=== PATIENT | female | born 1960 | race Two or more races ===

== ENCOUNTER 2025-02-20 21:27 | Emergency (ER) | payer MEDICAID, OTHER ==
[~2025-02-20] VITALS: Ht 157.5 cm; Wt 86.2 kg
[2025-02-20 22:13] LABS: BASOPHILS % (AUTO) 0.3 % (0.0-2.0); HEMATOCRIT 32 % (33-45); HEMOGLOBIN 10.3 g/dL (11.5-14.8); LYMPHOCYTES # (AUTO) 0.2 K/uL (0.8-4.8); LYMPHOCYTES % (AUTO) 3.7 % (20.0-44.0); MEAN CORPUSCULAR HEMOGLOBIN 28 PG (26.0-33.0); MEAN CORPUSCULAR HGB CONC 32 g/dl (31.0-36.0); MEAN CORPUSCULAR VOLUME 85 fL (82-100); MONOCYTES # (AUTO) 0.1 K/uL (0.1-1.30); MONOCYTES % (AUTO) 1.7 % (2.0-12.0); NEUTROPHILS # (AUTO) 6.1 K/uL (1.8-8.9); NEUTROPHILS % (AUTO) 94.3 % (43.0-81.0); PLATELET COUNT (AUTO) 251 K/uL (150-450); RED BLOOD CELL COUNT(AUTO) 3.74 MIL/uL (4.0-5.2); RED CELL DISTRIBUTION WIDTH 16.1 % (11.5-15.0); WHITE BLOOD COUNT (AUTO) 6.4 K/uL (4.3-11.0)
[2025-02-20 22:14] VITALS: TEMP 98.5
[2025-02-20 22:23] LABS: CALCIUM, SERUM 8.8 mg/dL (8.5-10.1); CARBON DIOXIDE 33 mmol/L (21-32); CHLORIDE 98 mmol/L (98-107); CREATININE 0.9 mg/dL (0.6-1.3); GLUCOSE 131 mg/dL (74-106); POTASSIUM 3.9 mmol/L (3.5-5.1); SODIUM SERUM 136 mmol/L (136-145); UREA NITROGEN, BLOOD 30 mg/dL (7-18)
[2025-02-20 22:28] LABS: ALANINE AMINOTRANSFERASE 26 U/L (12-78); ALBUMIN 2.6 g/dL (3.4-5.0); ALKALINE PHOSPHATASE 71 U/L (46-116); ASPARTATE AMINOTRANSFERASE 17 U/L (15-37); BILIRUBIN,DIRECT 0.1 mg/dL (0.0-0.2); BILIRUBIN,TOTAL 0.3 mg/dL (0.2-1.0); TOTAL PROTEIN, SERUM 6.4 g/dL (6.4-8.2)
[2025-02-20] MEDS ORDERED: CLONIDINE HCL 0.1 MG TABLET ONE (22:30)
[2025-02-20] MEDS: CLONIDINE HCL 0.1 MG TABLET PO ONE (22:30)
[2025-02-20 22:34] LABS: LACTIC ACID 1.5 mmol/L (0.4-2.0)
[2025-02-20 22:37] LABS: INR 1.06 (0.91-1.10); PARTIAL THROMBOPLASTIN TIME 31.8 SEC (24.3-34.3); PROTHROMBIN TIME 11.2 SECS (9.2-11.1)
[2025-02-20 23:23] LABS: APPEARANCE,URINE CLEAR (CLEAR); BILIRUBIN,URINE NEGATIVE (NEGATIVE); BLOOD, URINE NEGATIVE Ery/uL (NEGATIVE); COLOR,URINE YELLOW (YELLOW); KETONES,URINE NEGATIVE (NEGATIVE); LEUKOCYTE ESTERASE ,URINE NEGATIVE (NEGATIVE); NITRITE, URINE NEGATIVE (NEGATIVE); PROTEIN,URINE TRACE mg/dl (NEGATIVE); UGLUCOSE NEGATIVE (NEGATIVE); UROBILINOGEN,URINE 0.2 EU/dL (0.2)
[2025-02-20] MEDS ORDERED: methylPREDNISolone SOD SUCC 125 MG/2ML VIAL ONE (23:26)
[2025-02-20 23:28] LABS: ABG OXYGEN SATURATION 96.5 % (94.0-98.0); ABG PCO2 39.5 mmHg (32.0-45.0); ABG PH 7.519 (7.350-7.450); ABG PO2 79.7 mmHg (83.0-108.0); ABG TOTAL HEMOGLOBIN 10.8 G/dL (12.0-16.0); COHb 0.3 % (0.5-1.5); O2Hb 96.2 % (94.0-97.0); SITE, ABG LEFT BRACHIAL
[2025-02-20] MEDS ORDERED: CT SWABBABLE VALVE TRANS SET 1 EA INFUS.SET MC ONE (23:28)
[2025-02-20] MEDS ORDERED: IV NS 0.9% 250 ML IV ONE (23:28)
[2025-02-20] MEDS ORDERED: IOHEXOL-350 100 ML VIAL IV ONE (23:28)
[2025-02-20] MEDS: methylPREDNISolone SOD SUCC 125 MG/2ML VIAL IV ONE (23:33)
[2025-02-20 23:41] LABS: ADD URINE CULTURE YES; BACTERIA,URINE 1+ /HPF (None Seen); RBC,URINE 0-2 /HPF (0-2); SQUAMOUS EPITHELIAL CELL,UR Few /HPF (None Seen); WBC,URINE NONE SEEN /HPF (0-3)
[2025-02-20] MEDS: ALBUTEROL FS 2.5 MG/3 ML VIAL.NEB NEB ONE (23:55)
[2025-02-20] MEDS ORDERED: ALBUTEROL FS 2.5 MG/3 ML VIAL.NEB ONE (23:56)
[2025-02-21] VITALS (7 sets, daily range): BP systolic 150; BP diastolic 83; O2SAT 92–100
[2025-02-21] MEDS ORDERED: MAGNESIUM HYDROXIDE 30 ML UDC PO PRN (01:30)
[2025-02-21] MEDS ORDERED: Z GUARD REMEDY 4 OZ OINT TP PRN (01:30)
[2025-02-21] MEDS ORDERED: MAG HYDROX/AL HYDROX/SIMETH 30 ML UDC PO PRN (01:30)
[2025-02-21] MEDS ORDERED: ACETAMINOPHEN 325 MG TABLET PO PRN (01:30)
[2025-02-21] MEDS: ALBUTEROL FS 2.5 MG/3 ML VIAL.NEB NEB SCH (01:49)
[2025-02-21] MEDS: IPRATROPIUM NEB FS 0.5 MG/2.5 ML AMPUL.NEB NEB SCH (01:49)
[2025-02-21] MEDS ORDERED: ALBUTEROL FS 2.5 MG/3 ML VIAL.NEB ONE ×2 (01:50→07:49)
[2025-02-21] MEDS ORDERED: IPRATROPIUM NEB FS 0.5 MG/2.5 ML AMPUL.NEB ONE ×2 (01:50→07:49)
[2025-02-21] MEDS ORDERED: CLONIDINE HCL 0.1 MG TABLET ONE (03:37)
[2025-02-21] MEDS: CLONIDINE HCL 0.1 MG TABLET PO ONE (03:39)
[2025-02-21] MEDS ORDERED: methylPREDNISolone SOD SUCC 40 MG/ML VIAL IV SCH (05:00)
[2025-02-21] MEDS ORDERED: hydrALAZINE HCL IV 20 MG VIAL ONE (07:51)
[2025-02-21] MEDS: hydrALAZINE HCL IV 20 MG VIAL IV ONE (07:57)
[2025-02-21] MEDS ORDERED: LEVOFLOXACIN 500 MG /D5W 100ML 500 MG in PREMIX 1 EA IV SCH (08:00)
[2025-02-21] MEDS ORDERED: PANTOPRAZOLE 40 MG VIAL IV SCH (09:00)
[2025-02-21] MEDS ORDERED: ENOXAPARIN SODIUM 40 MG/0.4 ML DISP.SYRIN SQ SCH ×2 (09:00)
== END 2025-02-21 09:10 ==
LOC: ER 21:29
DX: J44.9 Chronic obstructive pulmonary disease, unspecified (principal); I12.9 Hypertensive chronic kidney disease with stage 1 through stage 4 chronic kidney disease, or unspecified chronic kidney disease; E78.5 Hyperlipidemia, unspecified; I25.10 Atherosclerotic heart disease of native coronary artery without angina pectoris; K50.90 Crohn's disease, unspecified, without complications; N18.9 Chronic kidney disease, unspecified; Z79.899 Other long term (current) drug therapy; Z20.822 Contact with and (suspected) exposure to COVID-19
CPT/HCPCS: 99285; 93970; 96374; 71275; 71045; 87426; 93005; 82803; 87804 ×2; 84145; 85025; 80048; 87040 ×2; 87086; 83605; 80076; 85378; 81001; 36415 ×2; 84484 ×2; 85730; 36600; 87081; 94640 ×2; J2919; J7050; Q9967; J0360; A4216; J1956